=== PATIENT | male | born 1955 | race Caucasian/White ===

== ENCOUNTER 2024-02-27 17:47 | Inpatient (IN) | payer MEDICARE ==
[~2024-02-27] VITALS: Ht 175.3 cm; Wt 106.1 kg
[2024-02-27] MEDS ORDERED: NS 1,000 ML IV ONE (18:45)
[2024-02-27 18:50] LABS: BASO # 0.1 K/mm3 (0.0-0.2); BASO % 0.3 % (0.0-2.0); EOS % 0.2 % (0.0-4.0); GRAN # 16.5 K/mm3 (1.4-6.5); GRAN % 84.8 % (42.2-75.2); HEMATOCRIT 47.9 % (42.0-52.0); HEMOGLOBIN 15.8 g/dl (13.5-18.0); LYMPH # 1.7 K/mm3 (1.2-3.4); LYMPH % 8.8 % (20.0-51.0); MEAN CELL VOLUME 85 fl (80.0-100.0); MEAN CORPUSCULAR HEMOGLOBIN 28 pg (27-31); MEAN CORPUSCULAR HGB CONC 33 g/dl (33.0-37.0); MEAN PLATELET VOLUME 9.4 fl (7.4-10.4); MONO # 1.1 K/mm3 (0.1-0.6); MONO % 5.4 % (1.7-9.3); PLATELET COUNT 408 K/mm3 (130-400); RED BLOOD COUNT 5.64 M/mm3 (4.20-5.60); REDCELL DISTRIBUTION WIDTH-CV 14.9 % (11.5-14.5)
[2024-02-27 19:04] LABS: ALBUMIN 3.7 g/dL (3.4-4.8); BILIRUBIN,TOTAL 1.6 mg/dL (0.2-1.2); C-REACTIVE PROTEIN 6.12 mg/dL (0.00-0.50); CALCIUM 9.6 mg/dL (8.4-10.2); CREATININE, serum 0.97 mg/dL (0.72-1.25); POTASSIUM 3.3 mEq/L (3.5-4.5); TOTAL PROTEIN 7.4 g/dl (6.2-8.1)
[2024-02-27 19:09] LABS: TROPONIN-I 0.014 ng/mL (0.00-0.033)
[2024-02-27 19:52] LABS: URINE APPEARANCE CLEAR (CLEAR/HAZY); URINE BLOOD NEGATIVE (NEGATIVE); URINE COLOR Dark Yellow (YELLOW); URINE GLUCOSE NEGATIVE (NEGATIVE); URINE KETONE 1+ (NEGATIVE); URINE NITRATE NEGATIVE (NEGATIVE); URINE PROTEIN(semi-quant) 1+ (NEGATIVE)
[2024-02-27] MEDS ORDERED: CELEXA 20MG20 MG/TAB PO (19:59)
[2024-02-27] MEDS ORDERED: PRINZIDE 12.5 M1 TA1 PO (19:59)
[2024-02-27] MEDS ORDERED: ZYLOPRIM 300MG300 MG PO (19:59)
[2024-02-27 20:07] LABS: COLLECTION METHOD CLEAN CATCH
[2024-02-27] MEDS ORDERED: FLOMAX 0.40.4 MG/CAP PO (21:51)
[2024-02-27] MEDS ORDERED: MELATONIN5 M1 SL (21:52)
[2024-02-27] MEDS ORDERED: Lisinopril 20 MG,hydroCHLOROthiazide 12.5 MG PO SCH (22:00)
[2024-02-27] MEDS ORDERED: Melatonin 3 MG TAB PO SCH (22:00)
[2024-02-27] MEDS ORDERED: NS 1,000 ML IV SCH (22:15)
[2024-02-27] MEDS ORDERED: Potassium Chloride 100 ML IV SCH (22:15)
[2024-02-27] MEDS ORDERED: *Potassium Replacement Protocol MC SCH (22:15)
[2024-02-27] MEDS ORDERED: cefTRIAXone 1 G in Water For Injection,Sterile 10 ML IV SCH (22:15)
[2024-02-27] MEDS ORDERED: hydrALAZINE 20 MG/ML 1 ML VIAL IV PRN (22:15)
[2024-02-27 22:48] LABS: PHOSPHOROUS 2.7 mg/dL (2.3-4.7)
[2024-02-27] MEDS ORDERED: Acetaminophen 325 MG TAB PO PRN (23:30)
[2024-02-28] VITALS (10 sets, daily range): BP systolic 150–170; BP diastolic 74–89; PULSE 72–85; TEMP 97.6–99
--- NOTE | 2024-02-28 00:41 | NUR ---
Patient arrived to surgical unit from ER at approximately 2350. Alert with confusion. Very EYAK, but does not wear hearing aides. Denies having pain and discomfort. Peripheral INT to left forearm. Started IV fluids, ABX, and IV Potassium per orders. Denies SOB and dyspnea. LS CTA in upper lobes, diminished in lower. HRR. BSAx4. Has abrasions to BUE and BLE. Has had multiple falls at home. Voices no questions, needs, or concerns at this time. In bed with call light within reach. High fall risk precautions in place. Bed alarm on.
[2024-02-28 06:52] LABS: BASO # 0.1 K/mm3 (0.0-0.2); BASO % 0.5 % (0.0-2.0); EOS # 0.1 K/mm3 (0.0-0.7); EOS % 0.8 % (0.0-4.0); GRAN # 10.7 K/mm3 (1.4-6.5); GRAN % 74.4 % (42.2-75.2); HEMATOCRIT 41.3 % (42.0-52.0); LYMPH # 2.4 K/mm3 (1.2-3.4); LYMPH % 16.7 % (20.0-51.0); MEAN CELL VOLUME 85 fl (80.0-100.0); MEAN CORPUSCULAR HEMOGLOBIN 28 pg (27-31); MEAN CORPUSCULAR HGB CONC 33 g/dl (33.0-37.0); MEAN PLATELET VOLUME 9.5 fl (7.4-10.4); PLATELET COUNT 338 K/mm3 (130-400); RED BLOOD COUNT 4.84 M/mm3 (4.20-5.60); REDCELL DISTRIBUTION WIDTH-CV 15.1 % (11.5-14.5)
[2024-02-28 06:54] LABS: HEMOGLOBIN 13.5 g/dl (13.5-18.0)
[2024-02-28 07:05] LABS: CALCIUM 8.5 mg/dL (8.4-10.2); CREATININE, serum 0.88 mg/dL (0.72-1.25); POTASSIUM 3.4 mEq/L (3.5-4.5)
--- NOTE | 2024-02-28 07:05 | NUR ---
Pt. reports pain to the chest and lt. arm. Dr. Holt notified. New orders received.
--- NOTE | 2024-02-28 07:08 | NUR ---
Patient continues on IV fluids per orders. Potassium continues to be replaced per protocol. Has denied pain and discomfort this shift when asked. In bed with call light within reach. High fall risk precautions in place. Bed alarm on.
--- NOTE | 2024-02-28 07:10 | NUR ---
Pt. sitting up in bed, Pt. is Alert and oriented X3, but forgetful. Pt. reports Chest pain and lt. arm pain at a 8 on pain scale. See previous note. Pt. denies further needs, call light within reach.
[2024-02-28 07:24] LABS: CHOLESTEROL RISK RATIO 3.9
[2024-02-28] MEDS ORDERED: Morphine 4 MG/ML VIAL IV ONE (07:30)
[2024-02-28] MEDS ORDERED: Allopurinol 300 MG TAB PO SCH (09:00)
[2024-02-28] MEDS ORDERED: Citalopram 20 MG TAB PO SCH (09:00)
[2024-02-28] MEDS ORDERED: Pantoprazole 40 MG in NS 10 ML IV SCH (09:00)
--- NOTE | 2024-02-28 10:59 | NUR ---
Initial visit; Patient thanked Quiller Runner for stopping though declined spiritual care stating that "He and God know eachother well." Quiller Runner mentioned that she is very glad to hear those words and wished Waldemar well.
[2024-02-28] MEDS ORDERED: Gadoterate 20 ML VIAL IV ONE (12:44)
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
[2024-02-28] MEDS ORDERED: Clopidogrel 75 MG TAB PO SCH (17:22)
[2024-02-28] MEDS ORDERED: Lidocaine 4% Topical Patch TP SCH ×2 (17:45)
[2024-02-28] MEDS ORDERED: Morphine 4 MG/ML VIAL IV PRN (17:45)
--- NOTE | 2024-02-28 19:15 | NUR ---
ARIANA Patel, notified of blood cx.
[2024-02-28] MEDS ORDERED: Potassium Bicarbonate/Citrate 20 MEQ Effervescent TAB PO SCH (19:45)
[2024-02-28] MEDS ORDERED: Atorvastatin 40 MG TAB PO SCH ×2 (21:00)
--- NOTE | 2024-02-28 22:00 | NUR ---
Patient assessed around 2039. Alert and oriented x 4, but does get forgetful and have hard time finding words at times. He states that this is normal for him due to his TBI. Denies having pain and discomfort at time of assessment. States pain hits with movement. Did not want to take off Lidocaine patch since it had recently been put on. Peripheral IV to left forearm with IV fluids running per orders. Received IV ABX per orders. Denies SOB and dyspnea. LS CTA in upper lobes, diminished in lower. BSAx4. Voices no questions, needs, or concerns at this time. In bed with call light within reach. High fall risk precautions in place. Bed alarm on.
--- NOTE | 2024-02-28 23:20 | NUR ---
Patient yelling out in pain. Reports level 10 pain to left shoulder. Given PRN Morphine and Acetaminophen per orders.
[2024-02-29] VITALS (14 sets, daily range): BP systolic 148–177; BP diastolic 72–100; PULSE 68–83; TEMP 97.5–98.2
--- NOTE | 2024-02-29 00:51 | NUR ---
Patient's BP 168/89. Given PRN Apresoline per orders.
--- NOTE | 2024-02-29 05:27 | NUR ---
Patient continues on IV fluids per orders. Given PRN pain medication as requested during the night. Received PRN Apresoline once this shift for HTN. Voices no questions, needs, or concerns at this time. In bed with call light within reach. High fall risk precautions in place. Bed alarm on.
[2024-02-29 06:32] LABS: BASO # 0.1 K/mm3 (0.0-0.2); BASO % 0.6 % (0.0-2.0); EOS # 0.3 K/mm3 (0.0-0.7); GRAN # 9.1 K/mm3 (1.4-6.5); GRAN % 72.7 % (42.2-75.2); HEMATOCRIT 41.1 % (42.0-52.0); HEMOGLOBIN 13.7 g/dl (13.5-18.0); LYMPH # 2.2 K/mm3 (1.2-3.4); LYMPH % 17.3 % (20.0-51.0); MEAN CELL VOLUME 84 fl (80.0-100.0); MEAN CORPUSCULAR HEMOGLOBIN 28 pg (27-31); MEAN CORPUSCULAR HGB CONC 33 g/dl (33.0-37.0); MEAN PLATELET VOLUME 9.3 fl (7.4-10.4); MONO # 0.8 K/mm3 (0.1-0.6); MONO % 6.7 % (1.7-9.3); PLATELET COUNT 325 K/mm3 (130-400); RED BLOOD COUNT 4.87 M/mm3 (4.20-5.60); REDCELL DISTRIBUTION WIDTH-CV 14.7 % (11.5-14.5)
[2024-02-29 07:11] LABS: CALCIUM 8.6 mg/dL (8.4-10.2); CREATININE, serum 0.85 mg/dL (0.72-1.25); POTASSIUM 3.2 mEq/L (3.5-4.5)
[2024-02-29] MEDS ORDERED: Potassium Bicarbonate/Citrate 20 MEQ Effervescent TAB PO SCH (07:30)
[2024-02-29] MEDS ORDERED: amLODIPine 10 MG TAB PO SCH (09:00)
--- NOTE | 2024-02-29 09:00 | NUR ---
Pt doing okay this morning. He was awake during shift report and was on the phone to order breakfast. Call must not have gone through as the kitchen stated he has not ordered yet. I did place an order for a tray, awaiting it at this time. Bed alarm on
--- NOTE | 2024-02-29 10:00 | NUR ---
PT was in recently and assisted pt up to the chair. Pt did void during this time. Linens changed and sponge bath given per PCT. Pt was having a hard time eating his breakfast due to left shoulder pain and lack of strength in his right arm. Pt was very jerky with the pain and hollering out a lot. I did assist him with eating his breakfast. Once finished, PCT and I assisted him back to bed. Bed alarm on. Pt is oriented, but forgetful. Consistently has to be reminded of why he is here and he keeps stating that he is glad he decided to come here because this is a good place.
--- NOTE | 2024-02-29 14:46 | NUR ---
bulb farmworker attended clinical rounding and was informed he will have a CORN[facility]IUS tomorrow. DIOGENES spoke with [facility] Director who has concerns regarding pt's placement after [facility] and further needs. DIOGENSE spoke with [facility] and [facility] who are full. [facility] has concerns with pt's cognition. DIOGENES spoke with [facility] who has a clinical acceptance, pending insurance auth. DIOGENES completed insurance authorization. DIOGENES received a call in the morning from pt's sister. [place] requesting an update. DIOGENES provided that she had not heard back from the facilities. DIOGENES later was informed Montana arrived in hospital. DIOGENES attempted to leave a voicemail providing an update. Discharge Plan: [facility]
--- NOTE | 2024-02-29 15:55 | NUR ---
bag worker was informed [facility] declines pt. SW left a voicemail informing sister, [place] that [facility], [facility], and that [facility] is the only one accepting. Discharge Plan: [facility]
--- NOTE | 2024-02-29 17:00 | NUR ---
PT has done okay today. Pain appears to be more within tolerable level this afternoon. Pt has had visitors with him most of the afternoon. Updated his sister on plan of care. No further questions at this time. Pt sitting up in the chair for dinner
--- NOTE | 2024-02-29 23:48 | NUR ---
Patient assessed around 1920. Given PRN [place] for pain as requested at that time. Given another [place] around 2330 as requested for pain. Aware of plan for [facility] tomorrow, and that he is NPO after midnight. Patient incontinent of urine, perineal hygiene care provided, and linens changed. Voices no further questions, needs, or concerns at this time. In bed with call light within reach. High fall risk precautions in place. Bed alarm on.
[2024-03-01] VITALS (18 sets, daily range): BP systolic 112–175; BP diastolic 58–88; PULSE 68–94; TEMP 98–98.3
--- NOTE | 2024-03-01 00:45 | NUR ---
Given PRN Appresoline per orders for HTN at this time.
[2024-03-01] MEDS ORDERED: LR 1,000 ML IV SCH (05:00)
--- NOTE | 2024-03-01 06:38 | NUR ---
Patient received PRN pain medication as requested during the night. Has been NPO since midnight for [facility] today. Voices no questions, needs, or concerns at this time. In bed with call light within reach. High fall risk precautions in place. Bed alarm on.
[2024-03-01 07:38] LABS: BASO # 0.1 K/mm3 (0.0-0.2); BASO % 0.6 % (0.0-2.0); EOS # 0.3 K/mm3 (0.0-0.7); EOS % 2.8 % (0.0-4.0); GRAN # 7.1 K/mm3 (1.4-6.5); GRAN % 70.6 % (42.2-75.2); HEMATOCRIT 41.7 % (42.0-52.0); HEMOGLOBIN 14.1 g/dl (13.5-18.0); LYMPH # 1.9 K/mm3 (1.2-3.4); LYMPH % 18.5 % (20.0-51.0); MEAN CELL VOLUME 83 fl (80.0-100.0); MEAN CORPUSCULAR HEMOGLOBIN 28 pg (27-31); MEAN CORPUSCULAR HGB CONC 34 g/dl (33.0-37.0); MEAN PLATELET VOLUME 9.3 fl (7.4-10.4); MONO # 0.7 K/mm3 (0.1-0.6); MONO % 6.5 % (1.7-9.3); PLATELET COUNT 337 K/mm3 (130-400); RED BLOOD COUNT 5.03 M/mm3 (4.20-5.60); REDCELL DISTRIBUTION WIDTH-CV 14.6 % (11.5-14.5)
[2024-03-01 07:47] LABS: CREATININE, serum 0.82 mg/dL (0.72-1.25); POTASSIUM 3.3 mEq/L (3.5-4.5)
--- NOTE | 2024-03-01 08:24 | NUR ---
Pt doing okay this morning. Remembers that he is having "a camera put in his throat to look at his heart" today. He is aware that he cannot have anything to eat or drink because of this. Pt still does not recall fall at home and being on the garage floor. Bed alarm on, call light within reach
[2024-03-01] MEDS ORDERED: Polyethylene Glycol 3350 17 GM PDS PO ONE (10:45)
[2024-03-01] MEDS ORDERED: Succinylcholine PF 200 MG/10 ML SYRINGE IV ONE (11:59)
[2024-03-01] MEDS ORDERED: Phenylephrine 10 MG/ML VIAL ONE (12:00)
[2024-03-01] MEDS ORDERED: NS 100 ML IV ONE (12:00)
[2024-03-01] MEDS ORDERED: Lidocaine PF 2% (20 MG/ML) 5 ML VIAL ONE (12:00)
[2024-03-01] MEDS ORDERED: ePHEDrine 50 MG/ML VIAL ONE (12:01)
--- NOTE | 2024-03-01 12:40 | NUR ---
Pt off the floor for [facility]US at this time
[2024-03-01] MEDS ORDERED: Polyethylene Glycol 3350 17 GM PDS PO SCH (14:00)
[2024-03-01] MEDS ORDERED: Potassium Bicarbonate/Citrate 20 MEQ Effervescent TAB PO SCH (14:15)
--- NOTE | 2024-03-01 14:28 | NUR ---
rocket test fire worker attended clinical rounding and notes pt will have a CORNELI[facility] today. Dr. Holt reports pt could discharge today vs tomorrow, if the results are non-concerning. DIOGENES emailed updates to Michael at [facility] and provided update. DIOGENES called sister, Jun [phone] to provide update. DIOGENES advised she could discharge today vs tomorrow depending on the results. DIOGENES completed IM from Medicare with sister. She provided verbal consent. Copy left in room and original in chart. Discharge Plan: [facility] SNF
--- NOTE | 2024-03-01 14:45 | NUR ---
Was notified pt was in afib in the 130s by Max in ICU. Attempted to notify Dr Holt with no answer. Called and notified Kim RANDHAWA, new orders received. Called RT for EKG
[2024-03-01] MEDS ORDERED: Amiodarone 200 MG TAB PO SCH (16:05)
[2024-03-01] MEDS ORDERED: Apixaban 5 MG TABLET PO SCH (16:06)
[2024-03-02 00:01] VITALS: BP_SYST 148
[2024-03-02 03:54] VITALS: BP 157/77; PULSE 68; TEMP 97.9
[2024-03-02 04:00] VITALS: BP_SYST 157
[2024-03-02 07:02] LABS: BASO % 0.4 % (0.0-2.0); EOS # 0.2 K/mm3 (0.0-0.7); EOS % 1.9 % (0.0-4.0); GRAN # 7.7 K/mm3 (1.4-6.5); GRAN % 70.2 % (42.2-75.2); HEMATOCRIT 42.7 % (42.0-52.0); HEMOGLOBIN 14.1 g/dl (13.5-18.0); LYMPH # 2.1 K/mm3 (1.2-3.4); LYMPH % 19.5 % (20.0-51.0); MEAN CELL VOLUME 83 fl (80.0-100.0); MEAN CORPUSCULAR HEMOGLOBIN 28 pg (27-31); MEAN CORPUSCULAR HGB CONC 33 g/dl (33.0-37.0); MEAN PLATELET VOLUME 9.2 fl (7.4-10.4); MONO # 0.8 K/mm3 (0.1-0.6); MONO % 7.1 % (1.7-9.3); PLATELET COUNT 380 K/mm3 (130-400); RED BLOOD COUNT 5.12 M/mm3 (4.20-5.60); REDCELL DISTRIBUTION WIDTH-CV 14.9 % (11.5-14.5)
[2024-03-02 07:24] LABS: CALCIUM 9.1 mg/dL (8.4-10.2); CREATININE, serum 0.84 mg/dL (0.72-1.25); POTASSIUM 3.4 mEq/L (3.5-4.5)
[2024-03-02 07:39] VITALS: BP 145/71; PULSE 67; TEMP 97.7
[2024-03-02 08:00] VITALS: BP_SYST 145
--- NOTE | 2024-03-02 08:00 | NUR ---
PATIENT IS A&O X2, DISPLAYS OCCATIONAL CONFUSION/FORGETFULNESS. PATIENT CAN BE IMPULSIVE AT TIMES. VSS ON TELE. C/O PAIN IN SHOULDERS & BACK AND REQUESTING SOMETHING FOR PAIN. GAVE PRN [place] & APPLIED LIDO PATCH WITH AM MEDS. NO C/O N/V. RIGHT WRIST & LEFT FORARM IV'S TO INT. PATIENT ASSISTED TO BEDSIDE CHAIR WITH WALKER, GAIT WEAK & UNSTEADY AT TIMES. PT/OT CONSULTED. BREAKFAST TRAY AT BEDSIDE. HEAD TO TOE ASSESSMENT COMPLETE. DNR/DNI STATUS. SCD'S CURRENTLY OFF. PLAN IS TO DISCHARGE TO [facility] TODAY. NO OTHER NEEDS AT THIS TIME. CALL LIGHT IN REACH. CHAIR ALARM ON.
[2024-03-02] MEDS ORDERED: LIPITOR 40MG TA40 MG PO (09:48)
[2024-03-02] MEDS ORDERED: NORVASC 10MG10 MG PO (09:48)
[2024-03-02] MEDS ORDERED: ELIQUIS 5MG PO (09:48)
[2024-03-02] MEDS ORDERED: OMNICEF 300MG300 MG PO (10:08)
[2024-03-02] MEDS ORDERED: DOXYCYCLINE HY100 MG PO (10:09)
[2024-03-02] MEDS ORDERED: CORDARONE200 MG/TAB PO (10:12)
--- NOTE | 2024-03-02 10:32 | NUR ---
SW informed that patient would be transfering to [facility]. SW faxed discharge documentation to facility and arranged transportation to facility.
[2024-03-02] MEDS ORDERED: Potassium Bicarbonate/Citrate 20 MEQ Effervescent TAB PO ONE (11:00)
--- NOTE | 2024-03-02 11:50 | NUR ---
PATIENT DISCHARGING TO [facility] VIA [facility]. GAVE INFO PACKET TO COMMUTATOR INSPECTOR. CALLED REPORT TO DJ AT [facility]. DC'D IV SITE AND COVERED WITH [facility] [employer]. TELE DC'D. PATIENT IS DRESSED, PACKED AND DISCHARGED.
[2024-03-08] MEDS ORDERED: Amiodarone 200 MG TAB PO SCH (21:00)
[2024-03-16] MEDS ORDERED: Amiodarone 200 MG TAB PO SCH (09:00)
== END 2024-03-02 11:50 | DRG 64 ==
LOC: COL.ER 17:47 → SURG 23:23
PROVIDERS: Emergency Medicine; Nurse Practitioner Family; Physician Assistant; ADMIT Internal Medicine
DX: I63.512 Cerebral infarction due to unspecified occlusion or stenosis of left middle cerebral artery (principal); A41.9 Sepsis, unspecified organism; G93.41 Metabolic encephalopathy; E87.20 Acidosis, unspecified; M54.6 Pain in thoracic spine; Z66 Do not resuscitate; I10 Essential (primary) hypertension; R29.6 Repeated falls; M10.9 Gout, unspecified; E86.0 Dehydration; E87.6 Hypokalemia; E80.7 Disorder of bilirubin metabolism, unspecified; M21.372 Foot drop, left foot; Z74.1 Need for assistance with personal care; N40.1 Benign prostatic hyperplasia with lower urinary tract symptoms; R35.0 Frequency of micturition; M19.012 Primary osteoarthritis, left shoulder; I48.91 Unspecified atrial fibrillation; R29.701 NIHSS score 1; M54.2 Cervicalgia; R41.3 Other amnesia; Z79.899 Other long term (current) drug therapy; Z87.891 Personal history of nicotine dependence; Z82.49 Family history of ischemic heart disease and other diseases of the circulatory system; Z80.42 Family history of malignant neoplasm of prostate; Z87.820 Personal history of traumatic brain injury
CPT/HCPCS: A9575; J0360; J0696; J2270; J2371; J2470; J2704; J3480; J7030; Q3014